=== PATIENT | female | born 1940 | race Asian ===

== ENCOUNTER → 2019-10-10 | Outpatient (CLI) | payer MEDICARE, OTHER ==
[~2019-10-10] MED LIST: B 12 INJECTION IM; CALC-613 PO; CARB15DR OU; FERR-52 PO; FOLI1TAB15 PO; IBAN150T16 PO; LATA2.5D2 OD; OMEP20TA25 PO; REGULAR INSULIN SQ; SIMV-259 PO; SITA1TAB2 PO; TIMO.5OS OD
[2019-10-10 14:40] LABS: APPEARANCE,URINE CLEAR (CLEAR); BILIRUBIN,URINE NEGATIVE (NEGATIVE); GLUCOSE, URINE (UA) NEGATIVE (NEGATIVE); KETONES,URINE NEGATIVE (NEGATIVE); NITRATE,URINE NEGATIVE (NEGATIVE); OCCULT BLOOD,URINE TRACE (NEGATIVE); PROTEIN,URINE NEGATIVE (NEGATIVE); UROBILINOGEN,URINE 0.2 mg/dL (<=1.0)
[2019-10-10 14:42] LABS: PROTHROMBIN TIME 9.8 SEC (9.4-11.6)
[2019-10-10 14:53] LABS: BACTERIA,URINE None Seen /HPF (None Seen); LEUKOCYTE ESTERASE ,URINE TRACE (NEGATIVE); RBC,URINE 0-2 /HPF (0-2); WBC,URINE 0-2 /HPF (0-5)
== END | disposition home or self-care (01) ==
LOC: LABPV 13:44
PROVIDERS: ATTEND Family Medicine
DX: R79.1 Abnormal coagulation profile (principal)

== ENCOUNTER 2021-06-03 08:38 | Emergency (ER) | payer MEDICARE, OTHER ==
[~2021-06-03] VITALS: Ht 147.3 cm; Wt 50.5 kg
[~2021-06-03 08:38] MED LIST changes: +LATA2.5D14 OD; -LATA2.5D2 OD
[2021-06-03] MEDS ORDERED: ACETAMINOPHEN 325 MG TABLET PO ONE (11:00)
[2021-06-03] MEDS ORDERED: RANO500T6 PO (11:09)
[2021-06-03] MEDS ORDERED: KETO15CR2 TP (11:09)
[2021-06-03] MEDS ORDERED: FOLI-130 PO (11:09)
[2021-06-03] MEDS ORDERED: TRIA15CR49 TP (11:09)
[2021-06-03] MEDS ORDERED: SITA1TBM4 PO (11:09)
[2021-06-03] MEDS ORDERED: INSREG SQ (11:10)
[2021-06-03] MEDS ORDERED: ISOS30TA92 PO (11:10)
[2021-06-03] MEDS ORDERED: NITR0.4T50 SL (11:10)
[2021-06-03 11:15] VITALS: BP 171/74
== END 2021-06-03 11:50 | disposition home or self-care (01) ==
LOC: EMS 08:54
DX: S00.03XA Contusion of scalp, initial encounter (principal); E11.9 Type 2 diabetes mellitus without complications; E78.00 Pure hypercholesterolemia, unspecified; I10 Essential (primary) hypertension; Z79.4 Long term (current) use of insulin; Z88.6 Allergy status to analgesic agent; W19.XXXA Unspecified fall, initial encounter; Y93.89 Activity, other specified; Y92.89 Other specified places as the place of occurrence of the external cause; Y99.8 Other external cause status
CPT/HCPCS: 70450; 99284

== ENCOUNTER 2023-03-31 01:26 | Emergency (ER) | payer MEDICARE, OTHER ==
[~2023-03-31] VITALS: Ht 147.3 cm; Wt 51.0 kg
[~2023-03-31 01:26] MED LIST changes: -B 12 INJECTION IM; -FERR-52 PO; +FOLI-130 PO; -FOLI1TAB15 PO; +INSREG SQ; +ISOS30TA92 PO; +KETO15CR2 TP; +NITR0.4T50 SL; +OMEP20TA20 PO; -OMEP20TA25 PO; +RANO500T6 PO; -REGULAR INSULIN SQ; -SITA1TAB2 PO; +SITA1TBM4 PO; -TIMO.5OS OD; +TIMO5DRO21 OD; +TRIA15CR49 TP
[2023-03-31 02:14] LABS: BASOPHILS % (AUTO) 0.9 % (0.0-2.0); EOSINOPHILS % (AUTO) 5.8 % (1.0-6.0); HEMATOCRIT 31.6 % (36-46); HEMOGLOBIN 10.5 g/dL (12.0-16.0); LYMPHOCYTES # (AUTO) 1.5 K/uL (1.0-4.8); LYMPHOCYTES % (AUTO) 17.4 % (22.0-44.0); MEAN CORPUSCULAR HEMOGLOBIN 29.4 pg (26.0-34.0); MEAN CORPUSCULAR HGB CONC 33.3 G/dL (31.0-37.0); MEAN CORPUSCULAR VOLUME 88 fL (80-100); MONOCYTES # (AUTO) 0.7 K/uL (0.1-1.0); MONOCYTES % (AUTO) 8.6 % (2.0-9.0); NEUTROPHILS # (AUTO) 5.7 K/uL (1.8-7.7); NEUTROPHILS % (AUTO) 67.3 % (40.0-70.0); PLATELET COUNT (AUTO) 405 K/uL (150-450); RED BLOOD CELL COUNT(AUTO) 3.57 MIL/uL (4.00-5.20); RED CELL DISTRIBUTION WIDTH 13.2 % (11.5-14.5)
[2023-03-31 02:23] LABS: CALCIUM, TOTAL 9.6 mg/dL (8.8-10.5); CREATININE 1.06 mg/dL (0.60-1.30); POTASSIUM 4.3 mmol/L (3.5-5.1)
[2023-03-31 02:34] LABS: ALBUMIN 3.9 g/dL (3.4-5.0); BILIRUBIN,TOTAL 0.3 mg/dL (0.1-1.0); TOTAL PROTEIN, SERUM 8.7 g/dL (6.4-8.2)
[2023-03-31 03:01] VITALS: BP 166/72
[2023-03-31 03:08] LABS: APPEARANCE,URINE CLEAR (CLEAR); BILIRUBIN,URINE NEGATIVE (NEGATIVE); GLUCOSE, URINE (UA) NEGATIVE (NEGATIVE); KETONES,URINE NEGATIVE (NEGATIVE); LEUKOCYTE ESTERASE ,URINE MODERATE (NEGATIVE); NITRATE,URINE POSITIVE (NEGATIVE); OCCULT BLOOD,URINE NEGATIVE (NEGATIVE); PH,URINE 6.5 (5.0-8.0); PROTEIN,URINE TRACE mg/dL (NEGATIVE); SPECIFIC GRAVITIY, URINE 1.005 (1.003-1.030); UROBILINOGEN,URINE <=1.0 mg/dL (<=1.0)
[2023-03-31 03:23] LABS: BACTERIA,URINE Many /HPF (None Seen); RBC,URINE None Seen /HPF (0-2); SQUAMOUS EPITHELIAL CELL,UR None Seen /LPF (None Seen)
[2023-03-31] MEDS ORDERED: CEPHALEXIN MONOHYDRATE 500 MG CAPSULE PO ONE (03:30)
== END 2023-03-31 03:50 | disposition home or self-care (01) ==
LOC: EMS 01:26
DX: N39.0 Urinary tract infection, site not specified (principal); I10 Essential (primary) hypertension; E11.9 Type 2 diabetes mellitus without complications; E78.00 Pure hypercholesterolemia, unspecified; Z88.4 Allergy status to anesthetic agent; Z88.8 Allergy status to other drugs, medicaments and biological substances
CPT/HCPCS: 71045; 80053; 81001; 82550; 83880; 84484; 85025; 87086; 87186; 93005; 99285; 36415-L1; 36415-TC